=== PATIENT | male | born 1965 | race African-American/Black ===

== ENCOUNTER 2018-07-31 21:51 | Inpatient (IN) | payer MEDICAID ==
[~2018-07-31] VITALS: Ht 162.6 cm; Wt 60.8 kg
[~2018-07-31 21:51] MED LIST: LEVO500T2 PO
[2018-08-01 00:15] LABS: BASOPHILS % 1.3 % (0.0-2.0); EOSINOPHILS % 2.3 % (0.0-5.0); HEMOGLOBIN. 16.8 g/dL (14.0-18.0); LYMPHOCYTES % 37.5 % (20.0-50.0); MEAN CORPUSCULAR HEMOGLOBIN 25.4 pg (28.0-32.0); MEAN PLATELET VOLUME 7.8 fl (7.4-10.4); MONOCYTES % 9.8 % (2.0-8.0); NEUTROPHILS % 49.1 % (40.0-76.0); PLATELET 361 x1000/uL (130-400); RED BLOOD CELL COUNT 6.63 mill/uL (4.7-6.1); RED CELL DISTRIBUTION WIDTH 15.2 % (11.6-14.6)
[2018-08-01 00:19] LABS: CHLORIDE 106 mEq/L (98-107)
[2018-08-01 00:29] LABS: ETHANOL BLOOD < 10 mg/dL
[2018-08-01 06:05] VITALS: BP 121/85
[2018-08-01] MEDS ORDERED: TIMO5DRO17 EACHEYE (06:14)
[2018-08-01] MEDS ORDERED: LATA2.5D2 EACHEYE (06:14)
[2018-08-01 08:00] VITALS: BP 119/73
[2018-08-01] MEDS ORDERED: ACETAMINOPHEN 325MG TABLET PO PRN (10:45)
[2018-08-01 12:00] VITALS: BP 121/84
[2018-08-01] MEDS: ASPIRIN 81MG EC TABLET PO SCH (15:17)
[2018-08-01 16:00] VITALS: BP 119/73
[2018-08-01 16:17] LABS: PHOSPHORUS 4.3 mg/dL (2.5-4.9)
[2018-08-01 16:33] LABS: T4 FREE 0.84 ng/dL (0.76-1.46)
[2018-08-01 20:00] VITALS: BP 133/84
[2018-08-02] VITALS: BP 126/85
[2018-08-02 04:00] VITALS: BP 113/82
[2018-08-02 07:33] LABS: BASOPHILS % 2.2 % (0.0-2.0); EOSINOPHILS % 4.8 % (0.0-5.0); HEMOGLOBIN. 15.6 g/dL (14.0-18.0); LYMPHOCYTES % 53.5 % (20.0-50.0); MEAN CORPUSCULAR HEMOGLOBIN 25.6 pg (28.0-32.0); MEAN CORPUSCULAR VOLUME 77.2 fL (80.0-94.0); MEAN PLATELET VOLUME 7.8 fl (7.4-10.4); NEUTROPHILS % 29.5 % (40.0-76.0); PLATELET 327 x1000/uL (130-400); RED BLOOD CELL COUNT 6.09 mill/uL (4.7-6.1); RED CELL DISTRIBUTION WIDTH 14.9 % (11.6-14.6)
[2018-08-02 08:00] VITALS: BP 115/77
[2018-08-02] MEDS: ASPIRIN 81MG EC TABLET PO SCH (08:19)
[2018-08-02 08:22] LABS: CHLORIDE 105 mEq/L (98-107)
[2018-08-02 12:00] VITALS: BP 106/74
[2018-08-02] MEDS ORDERED: ASPI-1158 PO (13:01)
[2018-08-02] MEDS ORDERED: MELO-104 MT (13:03)
[2018-08-02 14:19] VITALS: BP 106/74
== END 2018-08-02 16:00 | disposition home or self-care (01) | DRG 347 ==
LOC: ER 21:51 → 6EST 08-01 03:15 → ENRESERV 08-01 04:31
PROVIDERS: ADMIT Internal Medicine; ATTEND Internal Medicine
DX: M48.00 Spinal stenosis, site unspecified (principal); M48.02 Spinal stenosis, cervical region; M51.16 Intervertebral disc disorders with radiculopathy, lumbar region; M48.04 Spinal stenosis, thoracic region; M48.061 Spinal stenosis, lumbar region without neurogenic claudication; E78.00 Pure hypercholesterolemia, unspecified; F17.200 Nicotine dependence, unspecified, uncomplicated; H40.9 Unspecified glaucoma; I10 Essential (primary) hypertension; J44.9 Chronic obstructive pulmonary disease, unspecified; M51.34 Other intervertebral disc degeneration, thoracic region; M53.82 Other specified dorsopathies, cervical region; Z82.49 Family history of ischemic heart disease and other diseases of the circulatory system; Z82.5 Family history of asthma and other chronic lower respiratory diseases; Z86.73 Personal history of transient ischemic attack (TIA), and cerebral infarction without residual deficits; M51.26 Other intervertebral disc displacement, lumbar region
CPT/HCPCS: 36415; 70551; 72141; 72146; 72148; 80048; 80061; 82550; 82607; 82746; 83036; 83735; 84100; 84439; 84443; 84481; 92610; 93306; 93880; 97116; 97162; 97166; 99285; G0482

== ENCOUNTER 2019-11-05 14:12 | Emergency (ER) | payer MEDICAID ==
[~2019-11-05] VITALS: Ht 165.1 cm; Wt 67.0 kg
[~2019-11-05 14:12] MED LIST changes: +ASPI-1158 PO; +LATA2.5D2 EACHEYE; -LEVO500T2 PO; +MELO-104 MT
[2019-11-05] MEDS ORDERED: ACETAMINOPHEN 325MG TABLET PO ONE (16:00)
[2019-11-05] MEDS ORDERED: MORPHINE SULFATE 15MG TABLET SR PO ONE (16:45)
[2019-11-05 17:27] LABS: CLARITY URINE CLEAR (CLEAR); COLOR URINE YELLOW (YELLOW); KETONES URINE TRACE (NEGATIVE); LEUKOCYTE ESTERASE URINE NEGATIVE (NEGATIVE); NITRITE URINE NEGATIVE (NEGATIVE); OCCULT BLOOD URINE NEGATIVE (NEGATIVE); PROTEIN URINE TRACE (NEGATIVE); SPECIFIC GRAVITY URINE 1.019 (1.005-1.030)
[2019-11-05 19:24] VITALS: BP 135/89
== END 2019-11-05 19:25 | disposition home or self-care (01) ==
LOC: ER 14:12
DX: N20.0 Calculus of kidney (principal); K56.41 Fecal impaction; H40.9 Unspecified glaucoma; F17.210 Nicotine dependence, cigarettes, uncomplicated; Z79.82 Long term (current) use of aspirin; Z71.6 Tobacco abuse counseling
CPT/HCPCS: 74176; 81003; 99284; 99406

== ENCOUNTER 2021-10-01 14:34 | Emergency (ER) | payer MEDICAID, OTHER ==
[~2021-10-01] VITALS: Ht 165.1 cm; Wt 68.0 kg
[~2021-10-01 14:34] MED LIST changes: -ASPI-1158 PO; +ASPI-1406 PO; +LATA2.5D14 EACHEYE; -LATA2.5D2 EACHEYE
[2021-10-01 15:13] LABS: BASOPHILS % 1.1 % (0.0-2.0); HEMATOCRIT. 50.4 % (42.0-52.0); HEMOGLOBIN. 16.6 g/dL (14.0-18.0); LYMPHOCYTES % 31.7 % (20.0-50.0); MEAN CORPUSCULAR HEMOGLOBIN 24.6 pg (28.0-32.0); MEAN CORPUSCULAR VOLUME 74.7 fL (80.0-94.0); MEAN PLATELET VOLUME 7.5 fl (7.4-10.4); NEUTROPHILS % 56.2 % (40.0-76.0); PLATELET 350 x1000/uL (130-400); RED BLOOD CELL COUNT 6.74 mill/uL (4.7-6.1); RED CELL DISTRIBUTION WIDTH 14.6 % (11.6-14.6)
[2021-10-01 15:17] LABS: CHLORIDE 105 mEq/L (98-107)
[2021-10-01] MEDS ORDERED: ASPI-1497 MT (18:26)
[2021-10-01] MEDS ORDERED: ASPIRIN 81MG TABLET PO ONE (18:30)
[2021-10-01 18:43] VITALS: BP 160/100
== END 2021-10-01 18:44 | disposition home or self-care (01) ==
LOC: ER 14:34
DX: R07.89 Other chest pain (principal); J44.9 Chronic obstructive pulmonary disease, unspecified; I10 Essential (primary) hypertension; H40.9 Unspecified glaucoma; Z79.82 Long term (current) use of aspirin
CPT/HCPCS: 36415; 71045; 80053; 83880; 84484; 85025; 93005; 99285

== ENCOUNTER 2023-12-11 08:48 | Emergency (ER) | payer MEDICAID ==
[~2023-12-11] VITALS: Ht 172.7 cm; Wt 67.0 kg
[~2023-12-11 08:48] MED LIST changes: +ASPI-1497 MT
[2023-12-11 08:52] VITALS: BP 143/97; PULSE 93; RESP 16; TEMP 97.6; O2SAT 97
[2023-12-11] MEDS: FLUORESCEIN SODIUM 1MG/STRIP BOTHEYE ONE (10:13)
[2023-12-11] MEDS: TETRACAINE 0.5% OPHTH DROPS 4ML BOTHEYE ONE (10:13)
[2023-12-11] MEDS: TOBRAMYCIN 0.3% OPHTH DROPS 5ML OP STA (13:55)
[2023-12-11] MEDS ORDERED: TOBRO EACHEYE (15:16)
== END 2023-12-11 15:57 | disposition home or self-care (01) ==
LOC: ER 08:48
DX: S05.02XA Injury of conjunctiva and corneal abrasion without foreign body, left eye, initial encounter (principal); S05.01XA Injury of conjunctiva and corneal abrasion without foreign body, right eye, initial encounter; J44.9 Chronic obstructive pulmonary disease, unspecified; H40.9 Unspecified glaucoma; X58.XXXA Exposure to other specified factors, initial encounter; Y93.89 Activity, other specified; Y92.89 Other specified places as the place of occurrence of the external cause; Y99.8 Other external cause status
CPT/HCPCS: 99283